=== PATIENT | male | born 1975 | race Hispanic/Latino ===

== ENCOUNTER 2018-04-25 19:22 | Emergency (ER) | payer OTHER | END 2018-04-25 22:18 | disposition home or self-care (01) | LOC: EDH 19:22 | DX: G89.29 Other chronic pain (principal); R68.84 Jaw pain; M54.6 Pain in thoracic spine; F41.1 Generalized anxiety disorder; Z90.49 Acquired absence of other specified parts of digestive tract | CPT/HCPCS: 93005 ==